=== PATIENT | male | born 1970 | race Caucasian/White ===

== ENCOUNTER → 2023-12-23 06:36 | Outpatient (REF) | payer BC, SELFPAY | LOC: MRI 3T 06:36 | PROVIDERS: ATTENDING PHYSICIAN Psychiatry & Neurology Neurology; FAMILY PHYSICIAN Family Medicine | DX: M47.817 Spondylosis without myelopathy or radiculopathy, lumbosacral region (principal) | CPT/HCPCS: 72148 ==

== ENCOUNTER → 2025-04-27 12:11 | Outpatient (REF) | payer BC, SELFPAY | LOC: MRI 3T 12:11 | PROVIDERS: ATTENDING PHYSICIAN Physician Assistant Surgical; FAMILY PHYSICIAN Family Medicine | DX: M54.16 Radiculopathy, lumbar region (principal) | CPT/HCPCS: 72148 ==